=== PATIENT | female | born 1980 | race Caucasian/White ===

== ENCOUNTER 2018-02-22 08:00 | Inpatient (IN) | payer MEDICAID ==
--- NOTE | 2018-02-14 12:13 | MH ---
cc: Ryder Mcintosh MD DATE OF ADMISSION: 02/22/2018 REASON FOR ADMISSION: For a repeat section. CHIEF COMPLAINT: Desires repeat . HISTORY OF PRESENT ILLNESS: This patient is a 37-year-old G4, P3-0-0-3, who will be at at 39 weeks and 5 days by her 19-week ultrasound with estimated due date of 02/24/2018 at the time of her admission. She is here for a scheduled repeat . Addendum to HPI will be added at the time of her admission. Her has been complicated by HIV positive status, history of x3, advanced maternal age, chronic hypertension, tobacco use, rubella and varicella non-immune status. PAST MEDICAL HISTORY: 1. HIV positive, diagnosed in 2010 after her . Sees Dr. Thomas as her infectious disease doctor. 2. Chronic hypertension. 3. Tobacco use. MEDICATIONS: 1. Hydrochlorothiazide 25 mg daily. 2. Complera daily. 3. vitamin. 4. Aspirin 81 mg daily. ALLERGIES: NO KNOWN DRUG ALLERGIES. PAST SURGICAL HISTORY: x3 (1996, 1997, 2010). SOCIAL HISTORY: Smokes tobacco, denies alcohol or illicit drug use. Father of the baby is named Valdez and he is aware of her HIV status. CRIME SPECIALIST HISTORY: Unsure LMP of 05/11/2017. Other than an HIV, no history of sexually transmitted diseases. OB HISTORY: 11/1996: 40 weeks, primary , viable male weighing [address] [facility], was secondary to breech. 06/1998: 40 weeks, repeat , male weighing 6 pounds, [address] [facility] for nonreassuring heart tones. 09/2011: 40 weeks, repeat , male weighing 7 pounds, 9 ounces at [facility]. The patient states that she had no care. FAMILY HISTORY: Noncontributory. PHYSICAL EXAMINATION: VITAL SIGNS: Based on encounter from 01/30/2018, blood pressure 130/80, weight 200 pounds. Any changes will be added at the time of her presentation. GENERAL: Alert and oriented x 3. HEART: Regular rate and rhythm. No murmurs, rubs or gallops. LUNGS: Clear to auscultation bilaterally. No wheezes, crackles or rhonchi. ABDOMEN: Soft, gravid, nontender, nondistended. No rebound or guarding. GENITOURINARY: Exam deferred. EXTREMITIES: No clubbing, cyanosis or edema. heart tones will be documented at the time of her presentation as well as any contractions. LABORATORY DATA: labs 09/05/2017: Blood type O-positive, antibody negative. Baseline hemoglobin 12.7, platelets 293. Normal Pap. Varicella non-immune. Rubella equivocal. VDRL nonreactive. Urine culture not indicated. Hepatitis B surface antigen negative. HIV positive. Gonorrhea and chlamydia negative. Cystic fibrosis screen negative. TSH 2.06. Sickle cell screen negative. Urine drug screen negative. Hepatitis C negative. Repeat labs on 11/04/2017: Hemoglobin 12.1. Hepatitis B nonreactive. Drug screen negative. RPR nonreactive. 01/22/2018: One hour GTT of 107. 11/14/2007: Viral load less than 20. GBS not collected. ASSESSMENT AND PLAN: This patient is a 37-year-old G4, P3-0-0-3, who will be at 39 weeks and 5 days by a 19-week ultrasound with estimated due date of 02/24/2018, here for a scheduled repeat . 1. Intrauterine : will be placed on EFM and toco. - Estimated weight on 01/30/2018 was 2318 grams, 13.9%ile, abdominal circumference 2%. TIMOTEO 11. BPP 8/8. Placenta posterior. 2. History of section x3. Patient desires repeat. Discussed risks, benefits and expected outcomes of surgery and repeat associated with maternal and morbidity. Please see consents for further details. CBC and type and cross x2 for the patient upon presentation. Possibly desires sterilization. The patient signed her Medicaid tubal papers on 12/13/2017. We will readdress this with her at the time of her presentation to see if she desires to pursue this. 3. Human immunodeficiency virus positive. The patient has been managed by her infectious disease doctor, Dr. Thomas. She has been fairly resistant and noncompliant per my recommendations of viral load and CD4 testing; however, she has been on Complera and stable and compliant with this since her diagnosis. Most recent documented viral load on 11/04/2017 was less than 20. We will repeat with CD4 at the time of her presentation to labor and delivery. 4. Advanced maternal age. Noninvasive screening was negative, normal anatomy of a female fetus. 5. Chronic hypertension, well controlled on hydrochlorothiazide 25 mg daily. The patient refused to collect a 24-hour urine protein as a baseline. 6. Tobacco use. We will discuss its implications again on healing and course. 7. Rubella and varicella virus non-immune. Recommended her to discuss this with her infectious disease doctor . 8. Lagging abdominal circumference for weight on 01/30/2018. Abdominal circumference in the 2nd percentile but overall EFW of 13%. Had 8/8 BPP and normal uterine artery Dopplers. Recommend the patient have weekly testing which she has not been able to comply with. 9. the patient is aware that she cannot breastfeed. MD MING Watson/LAMAR , 01:27 PM , 02:16 PM WILLIE
[~2018-02-22] VITALS: Ht 170.2 cm; Wt 94.0 kg
[~2018-02-22 08:00] MED LIST: DARV PO; IBUP400T20 PO; Z.0.NO CURRENT MEDS
[2018-02-22] MEDS ORDERED: LACTATED RINGER'S 1000 ML INJ 1,000 ML IV ONE (08:33)
[2018-02-22] MEDS ORDERED: EMTRICITABINE/TENOFOVIR 200 MG/300 MG TAB PO SCH (09:00)
[2018-02-22] MEDS ORDERED: RILPIVIRINE 25 MG TAB PO SCH (09:00)
[2018-02-22] MEDS ORDERED: IBUP-232 PO (09:01)
[2018-02-22] MEDS ORDERED: PERC5TAB12 PO (09:02)
[2018-02-22] MEDS ORDERED: LACTATED RINGER'S 1000 ML INJ 1,000 ML IV SCH ×2 (09:03→14:33)
--- NOTE | 2018-02-22 09:05 | HHI.DCPOC ---
Discharge Care Plan Diagnosis: (1) HIV (human immunodeficiency virus infection) (2) Hypertension (3) delivery delivered (4) 39 weeks gestation of (5) Tobacco use disorder (6) Advanced maternal age (AMA) in Your Health Problems Are: delivery (and BTL) Report Symptoms to Your Doctor -Temperature above 100.5 degrees -Redness, of incision or excessive or foul smelling drainage -Unusual pain or calf pain -Increased vaginal bleeding -Painful or difficulty urinating -Feelings of extreme sadness or anxiety after 2 weeks Goals to Promote Your Health * To prevent worsening of your condition and complications * To maintain your health at the optimal level Directions to Meet Your Goals Take your medications as prescribed Follow your dietary instruction Follow activity as directed Ensure plenty of rest for recovery Drink fluids for hydration Keep your appointments as scheduled Take your immunizations and boosters as scheduled If your symptoms worsen call your PCP, if no PCP go to Urgent Care Center or Emergency Room Smoking is Dangerous to Your Health. Avoid second hand smoke Call the 24-hour crisis hotline for domestic abuse at Ryder Mcintosh MD February 22, 2018 09:05
--- NOTE | 2018-02-22 09:06 | PD.OB.DELI ---
Procedure Note Section Procedure Pre Op Diagnosis: (1) Hypertension (2) delivery delivered (3) HIV (human immunodeficiency virus infection) (4) 39 weeks gestation of (5) Advanced maternal age (AMA) in (6) Tobacco use disorder Post Op Diagnosis: Performed by Ryder Mcintosh Procedure: Repeat Low Transverse Sec (and BTL) Indication for delivery: Desired elective repeat Previous condition: Other (history of x3) Informed consent obtained: For anesthesia, For procedure Confirmed correct: Patient, Procedure, Site Anesthesia: Spinal Medication prior to procedure: As documented in eMAR, Analgesics, Antacids, Antibiotics, IV Monitoring during procedure: Blood pressure monitoring, Pulse oximetry Urinary catheter: Inserted using sterile technique, To dependent drainage, ml urine output (350) Sterile preparation: Duraprep Position: Supine with wedge to left side Operative Features Skin Incision: Pfannenstiel Uterine Incision: Low transverse w/knife / blunt ext Membranes Ruptured: Artificially Presentation: Occiput anterior, Vertex Delivery date: February 22, 2018 Delivery time: 10:37 Delivery of infant: Uneventful : Female, Single One Minute : 9 Five Minute : 9 Status of : Viable Placenta delivered: Intact Medications: Antibiotics (2g ancef), Oxytocin (after delivery of ) Estimated blood loss: 500 Procedure tolerated: Well Maternal Complications: Other (none) Maternal Condition: Stable Baby Complications: Other (none) Condition: Stable Procedure in detail IV fluids: 2200 cc lactated Ringer's and Pitocin Specimens: Bilateral mid isthmic segment of fallopian tube to pathology, routine Complications: none Findings: -Moderate scar tissue of the subcutaneous fat and fascia, no intra-abdominal adhesions, very thin lower uterine segment, normal ovaries bilaterally, normal fallopian tubes bilaterally. Full reported dictated with dictation number: [id number] Ryder Mcintosh MD February 22, 2018 09:06
--- NOTE | 2018-02-22 09:20 | HHI.PR ---
JAVA SOFTWARE ENGINEER Note Note Patient presents for her scheduled , updated that she does desire a tubal ligation, is aware of the risks, benefits and expected outcomes of this, these were re-explained to her today. She signed her Medicaid sterilization consents on 12/13/2017. She also has a mildly elevated diastolic blood pressure of 138/92, she has no signs or symptoms of preeclampsia, she did take her blood pressure medicine last night which she routinely takes in the morning. We will collect HELLP labs and urine P:C, however no P:C or 24-hour urine baseline for comparison. Ryder Mcintosh MD February 22, 2018 09:20
[2018-02-22 09:32] LABS: AUTOMATED NEUTROPHIL # 7.8 TH/MM3 (1.8-7.7); BASOPHIL # 0.1 TH/MM3 (0-0.2); EOSINOPHIL # 0.3 TH/MM3 (0-0.4); EOSINOPHIL % 2.3 % (0.0-4.0); HEMATOCRIT 36.8 % (35.0-46.0); HEMOGLOBIN 13.1 GM/DL (11.6-15.3); LYMPH % 23.2 % (9.0-44.0); LYMPHOCYTE # 2.8 TH/MM3 (1.0-4.8); MEAN CELL VOLUME 90.7 FL (80.0-100.0); MEAN CORPUSCULAR HEMOGLOBIN 32.2 PG (27.0-34.0); MEAN CORPUSCULAR HGB CONC 35.5 % (32.0-36.0); MEAN PLATELET VOLUME 9.6 FL (7.0-11.0); MONO % 8.4 % (0.0-8.0); NEUT % 65.1 % (16.0-70.0); PLATELET COUNT 249 TH/MM3 (150-450); RED BLOOD COUNT 4.06 MIL/MM3 (4.00-5.30); RED CELL DISTRIBUTION WIDTH 12.8 % (11.6-17.2); WHITE BLOOD COUNT 11.9 TH/MM3 (4.0-11.0)
[2018-02-22] MEDS ORDERED: ACETAMINOPHEN 1000 MG/100 ML 100 ML IV ONE ×2 (09:45→12:05)
[2018-02-22] MEDS ORDERED: SIMETHICONE 80 MG CHEWABLE TAB PO PRN (09:45)
[2018-02-22] MEDS ORDERED: oxyCODONE/ACETAMINOPHEN 5 MG/325 MG TAB PO PRN ×2 (09:45)
[2018-02-22] MEDS ORDERED: SODIUM CHLORIDE 0.9% FLUSH 10 ML FLUSH IV FLUSH PRN (09:45)
[2018-02-22] MEDS ORDERED: OXYTOCIN 30 UNITS-500ML PREMIX 500 ML IV ONE (09:45)
[2018-02-22] MEDS ORDERED: ceFAZolin 2 GM PREMIX 50 ML IV SCH (09:45)
[2018-02-22] MEDS ORDERED: DOCUSATE SODIUM 50 MG/SENNA 8.6 MG TAB PO PRN (09:45)
[2018-02-22 09:54] LABS: ALBUMIN 2.6 GM/DL (3.4-5.0); AST (GOT) 25 U/L (15-37); BICARBONATE 23.4 MEQ/L (21.0-32.0); BLOOD UREA NITROGEN 11 MG/DL (7-18); CHLORIDE 101 MEQ/L (98-107); CREATININE 0.63 MG/DL (0.50-1.00); GLOMERULAR FILTRATION RATE 105 ML/MIN (>89); GLUCOSE,RANDOM 72 MG/DL (74-106); SODIUM (NA) 133 MEQ/L (136-145)
[2018-02-22 09:58] LABS: ALKALINE PHOSPHATASE 231 U/L (45-117); ALT (GPT) 18 U/L (10-53); TOTAL BILIRUBIN ADULT 0.2 MG/DL (0.2-1.0); TOTAL PROTEIN 7.1 GM/DL (6.4-8.2)
[2018-02-22] MEDS ORDERED: KETOROLAC TROMETHAMINE 30 MG/ML (IVP) VIAL IV PUSH SCH (10:00)
[2018-02-22] MEDS ORDERED: MORPHINE SULFATE PF 5 MG/10 ML VIAL ONE (10:01)
[2018-02-22] MEDS ORDERED: CITRIC ACID-SODIUM CITRATE LIQ 30 ML UDC PO SCH (10:15)
[2018-02-22] MEDS ORDERED: ONDANSETRON HCL 4 MG/2 ML VIAL ONE (11:46)
[2018-02-22] MEDS ORDERED: OXYTOCIN 30 UNITS-500ML PREMIX 500 ML ONE (12:06)
--- NOTE | 2018-02-22 12:11 | MP ---
cc: Ryder Mcintosh MD DATE OF OPERATION: 02/22/2018 DATE OF OPERATION: 02/22/2018 PREOPERATIVE DIAGNOSES: 1. Intrauterine at 39 weeks and 5 days. 2. History of section x 3, desiring repeat. 3. Desires sterilization. 4. Human immunodeficiency virus positive. 5. Chronic hypertension. 6. Tobacco use. 7. Advanced maternal age. 8. Rubella and varicella status nonimmune. POSTOPERATIVE DIAGNOSES: 1. Intrauterine at 39 weeks and 5 days. 2. History of section x 3, desiring repeat. 3. Desires sterilization. 4. Human immunodeficiency virus positive. 5. Chronic hypertension. 6. Tobacco use. 7. Advanced maternal age. 8. Rubella and varicella status nonimmune. 9. Status post delivery and tubal ligation. PROCEDURE PERFORMED: Repeat low transverse and bilateral tubal ligation, modified [place]. SURGEON: Ryder Mcintosh MD HVAC/R SERVICE TECHNICIAN SURGEON: Fly Mcghee OR scrub staff. FINDINGS: 1. Viable female at 10:37, apgars 9 and 9. 2. Moderate subcutaneous scarring. No intra-abdominal adhesions. Normal-appearing fallopian tubes and ovaries bilaterally. Very thin lower uterine segment, almost a uterine window. 3. Intact placenta, 3-vessel cord shortly after ESTIMATED BLOOD LOSS: 500 mL. IV REPLACEMENT: 2200 mL Lactated Ringer's and Pitocin. URINE OUTPUT: 350 mL, clear via Kumar. ANESTHESIA: Spinal with Astramorph. ANTIBIOTICS: Ancef 2 grams preoperatively. SPECIMENS: Bilateral mid isthmic segments of fallopian tubes to pathology routine. Placenta to disposal. COUNTS: Correct x 2. TIMEOUT: Done and correct. COMPLICATIONS: None. DVT PROPHYLAXIS: Sequential compression devices throughout the case. DISPOSITION: Stable to PACU, then . INDICATION FOR PROCEDURE: This patient is a 37-year-old -0-0-3, now P4-0-0-4, who presented for a scheduled repeat . She was followed closely as an outpatient for her other comorbidities, she had an undetectable viral load in November of this year and had been compliant with her Complera and followed by infectious disease. She had testing that was all reassuring and the patient was counseled for repeat and bilateral tubal ligation. Please see H and P for further details and consents. DESCRIPTION OF PROCEDURE: The patient was taken to the operating room where spinal anesthesia was placed and found to be adequate. She was positioned in the supine position with a left lateral tilt with the arms out. The abdomen was prepped and draped in a sterile fashion. A Kumar was inserted with sterile technique. A Pfannenstiel incision was made overlying the previous scar and dissected sharply down to the fascia, which was extended bilaterally with Marks scissors and dissected off the rectus muscle superiorly and inferiorly with Marks scissors. The peritoneum was entered sharply with a scalpel and retracted laterally. The bladder was well away and a bladder flap was developed with Metzenbaum scissors. A very thin lower uterine segment was appreciated and just superior to that, the hysterotomy was made in a curvilinear fashion still within the lower uterine segment and extended in a cephalad-caudad fashion. My hand was inserted into the uterus and the head was elevated to the hysterotomy with fundal pressure, the head was delivered with ease and the amniotic sac was artificially ruptured. With gentle downward guidance and upward guidance for the anterior and posterior shoulders respectively, the was delivered followed by the torso and lower extremities with ease. Infant had spontaneous cry. Delayed cord clamping was allowed and then the was handed off to the staff. The placenta was delivered by bolusing Pitocin and uterine massage and cord traction intact. The uterus was exteriorized and cleared free of clot and debris. Uterus was closed with a single running locking layer of 0 Vicryl. There was a small 5mm tear in that thin lower uterine segment on the left side of the inferior aspect of the hysterotomy that was attempted to be closed with 0 and 3-0 Vicryl [id number]. However, due to its thinness and tension from the suture, several small fenestrations which leaked intrauterine blood were appreciated; however, that blood was minimal. Attention was turned to the fallopian tubes. The mid isthmic segment was elevated with Babcocks and doubly ligated with 0 plain gut. The elevated knuckle was removed with Metzenbaums and the cut edges were found to be hemostatic. The same was done on the contralateral side. The uterus was returned to the abdomen. The abdomen was irrigated as well as the hysterotomy and found to be hemostatic. The fascia was closed with single running unlocked 0 Vicryl from left to right and the subcutaneous tissue was irrigated and found to be hemostatic. The skin was closed with 3-0 Monocryl in a subcuticular fashion and a pressure dressing was applied and the patient tolerated the procedure well. MD MING Watson/PRADEEP , 11:24 AM , 12:10 PM WILLEI
[2018-02-22] MEDS ORDERED: KETOROLAC TROMETHAMINE 30 MG/ML (IVP) VIAL ONE (12:13)
[2018-02-22] MEDS ORDERED: PROMETHAZINE INJ 25 MG/ML VIAL IM ONE (12:15)
[2018-02-22] MEDS ORDERED: EPIDURAL-NALOXONE HCL 0.4 MG/ML AMP IV PUSH PRN (13:45)
[2018-02-22] MEDS ORDERED: EPIDURAL-NO SYSTEMIC NARCOTICS PRN (13:45)
[2018-02-22] MEDS ORDERED: EPIDURAL-DIPHENHYDRAMINE HCL 50 MG/ML VIAL IV PUSH PRN (13:45)
[2018-02-22] MEDS ORDERED: EPIDURAL-DIPHENHYDRAMINE HCL 50 MG CAP PO PRN (13:45)
[2018-02-22] MEDS ORDERED: EPIDURAL-DO NOT ADMINISTER ANTICOAGULANTS PRN (13:45)
[2018-02-22] MEDS ORDERED: OXYTOCIN 30 UNITS-500ML PREMIX 500 ML IV PRN (14:45)
[2018-02-22] MEDS: ONDANSETRON ODT 4 MG TAB PO PRN ×2 (17:50→21:13)
[2018-02-22] MEDS: PROMETHAZINE INJ 25 MG/ML VIAL IM PRN ×2 (17:50→21:17)
[2018-02-22 20:28] VITALS: BP 122/78; PULSE 60; RESP 18; TEMP 97.7
[2018-02-22] MEDS ORDERED: SODIUM CHLORIDE 0.9% FLUSH 10 ML FLUSH IV FLUSH SCH (21:00)
[2018-02-22 23:59] VITALS: BP 115/76; PULSE 71; RESP 17; TEMP 98.2
[2018-02-23 05:05] VITALS: BP 117/69; PULSE 60; RESP 17; TEMP 98.2
[2018-02-23 06:00] LABS: AUTOMATED NEUTROPHIL # 8.9 TH/MM3 (1.8-7.7); BASOPHIL # 0.1 TH/MM3 (0-0.2); BASOPHIL % 0.5 % (0.0-2.0); EOSINOPHIL # 0.1 TH/MM3 (0-0.4); HEMATOCRIT 36.3 % (35.0-46.0); HEMOGLOBIN 12.1 GM/DL (11.6-15.3); LYMPH % 19.6 % (9.0-44.0); LYMPHOCYTE # 2.5 TH/MM3 (1.0-4.8); MEAN CORPUSCULAR HEMOGLOBIN 31.3 PG (27.0-34.0); MEAN CORPUSCULAR HGB CONC 33.3 % (32.0-36.0); MEAN PLATELET VOLUME 9.7 FL (7.0-11.0); MONO % 8.4 % (0.0-8.0); MONOCYTE # 1.1 TH/MM3 (0-0.9); NEUT % 70.5 % (16.0-70.0); PLATELET COUNT 220 TH/MM3 (150-450); RED BLOOD COUNT 3.87 MIL/MM3 (4.00-5.30); RED CELL DISTRIBUTION WIDTH 12.8 % (11.6-17.2); WHITE BLOOD COUNT 12.7 TH/MM3 (4.0-11.0)
[2018-02-23] MEDS: ACETAMINOPHEN 325 MG TAB PO PRN ×3 (07:54→20:13)
[2018-02-23] MEDS: IBUPROFEN 600 MG TAB PO PRN ×3 (07:54→20:13)
--- NOTE | 2018-02-23 08:36 | HHI.OB ---
Subjective Post Operative Day: 1 Remarks Doing very well on POD 1 with ambulation. Not using narcotics due to past history. Desires to take complera (her own) and not the generic equivalent available here. Does not have significant pain and desires POD 2 discharge. bottle feeding. Objective Vitals/I&O Vital Signs Date Time Temp Pulse Resp B/P (MAP) Pulse Ox O2 Delivery O2 Flow Rate FiO2 02/23/18 05:05 98.2 60 17 117/69 (85) 02/22/18 23:59 98.2 71 17 115/76 (89) 02/22/18 20:28 97.7 60 18 122/78 (93) Intake & Output 02/23/18 02/23/18 07:00 19:00 Output Total 1725 ml Balance -1725 ml Output Urine Total 1725 ml Result Diagram: 02/23/18 0457 02/22/18 0900 Objective Remarks GENERAL: Well-nourished, well-developed patient. CARDIOVASCULAR: Regular rate and rhythm without murmurs, gallops, or rubs. RESPIRATORY: Breath sounds equal bilaterally. No accessory muscle use. ABDOMEN/GI: Abdomen soft, non-tender, bowel sounds present. Incision: Clean, dry and intact. Fundus: Firm, non-tender at umbilicus. GENITOURINARY: Light to moderate bleeding. EXTREMITIES: No cyanosis or edema, non-tender, without signs of DVT. Medications and IVs Current Medications Medications (Trade) Dose Ordered Sig/Frida Route Start Time Stop Time Status Last Admin Lactated Ringer's 1,000 ml @ 150 mls/hr Q6H40M IV 02/22/18 09:03 Cefazolin Sodium/ Dextrose 50 ml @ 100 mls/hr CODE AND TEST CLERK IV 02/22/18 09:45 02/26/18 09:44 (Bicitra Liq) 30 ml CODE AND TEST CLERK PO 02/22/18 10:15 02/26/18 10:14 (Hydrodiuril) 25 mg DAILY PO 02/23/18 09:00 (Truvada 200-300 Mg) 1 tab DAILY PO 02/22/18 09:00 (Edurant) 25 mg DAILY PO 02/22/18 09:00 Lactated Ringer's 1,000 ml @ 100 mls/hr Q10H IV 02/22/18 14:33 02/23/18 10:32 Oxytocin 500 ml @ 100 mls/hr UNSCH X1 PRN IV 02/22/18 14:45 02/23/18 14:44 (NS Flush) 2 ml BID IV FLUSH 02/22/18 21:00 (NS Flush) 2 ml UNSCH PRN IV FLUSH 02/22/18 09:45 (Mylicon Chew) 80 mg QID PRN PO 02/22/18 09:45 (Tylenol) 650 mg Q6H PRN PO 02/22/18 09:45 02/23/18 07:54 (Motrin) 600 mg Q6H PRN PO 02/22/18 09:45 02/23/18 07:54 (Percocet 5-325 Mg) 1 tab Q4H PRN PO 02/22/18 09:45 (Percocet 5-325 Mg) 2 tab Q4H PRN PO 02/22/18 09:45 (Uzma-Colace) 2 tab Q12H PRN PO 02/22/18 09:45 (M-M-R Ii Inj) 0.5 ml ONCE ONCE SQ 02/23/18 16:00 02/23/18 16:01 (Boostrix Inj) 0.5 ml ONCE ONCE IM 02/23/18 16:00 02/23/18 16:01 (Zofran Odt) 4 mg Q4H PRN PO 02/22/18 10:00 02/22/18 21:13 ([facility] [place] [facility] Information) NO SYSTEMIC NARCOTICS TO BE GIVEN FO... UNSCH PRN .XX 02/22/18 13:45 02/23/18 13:44 (Narcan Inj) 0.4 mg UNSCH PRN IV PUSH 02/22/18 13:45 02/23/18 13:44 (Benadryl Inj) 25 mg Q6H PRN IV PUSH 02/22/18 13:45 02/23/18 13:44 (Benadryl) 50 mg Q6H PRN PO 02/22/18 13:45 02/23/18 13:44 02/22/18 21:12 ([facility] Information) ALL NURSING DEPARTMENTS UNSCH PRN .XX 02/22/18 13:45 02/23/18 13:44 (Phenergan Inj) 25 mg Q4H PRN IM 5/24/18 17:30 02/22/18 21:17 Assessment/Plan Assessment and Plan POD 1 s/p fourth section and PPTL on retrovirals with no detectable viral load reported (labs here pending) did not receive peripartum AZT due to non detectable normotensive and can continue HCTZ since not nursing will take own complera andJOLENE plan for discharge in the morning Yashira Ross MD February 23, 2018 08:36
[2018-02-23] MEDS ORDERED: HYDROCHLOROTHIAZIDE 25 MG TAB PO SCH (09:00)
[2018-02-23] MEDS ORDERED: MEASLES, MUMPS, RUBELLA VACCINE 0.5 ML VIAL SQ ONE (16:00)
[2018-02-23] MEDS ORDERED: DIPHTH/TETANUS/ACEL PERTUSSIS (BOOSTER) 0.5 ML VIAL/PFS IM ONE (16:00)
[2018-02-24] MEDS: IBUPROFEN 600 MG TAB PO PRN ×2 (05:06→12:26)
[2018-02-24] MEDS: ACETAMINOPHEN 325 MG TAB PO PRN ×2 (05:06→12:26)
--- NOTE | 2018-02-24 09:25 | HHI.OB ---
Subjective Post Operative Day: 2 Remarks Mom ready for discharged and initially not buying into having infant stay for observation due to size. Dr. Zhang attempting to explain and I have supported her. Mom has another 24 hours she can stay but wants discharge. Can stay with baby in peds. If changes mind will cancel discharge' pain controlled with motrin and some tramadol. no DYE, blurred vision, N, V, RUQT denies PPD reviewed blood clots, depression and return to office next week continue retrovirals baby has AZT Objective Result Diagram: 02/23/18 0457 02/22/18 0900 Objective Remarks GENERAL: Well-nourished, well-developed patient. CARDIOVASCULAR: Regular rate and rhythm without murmurs, gallops, or rubs. RESPIRATORY: Breath sounds equal bilaterally. No accessory muscle use. ABDOMEN/GI: Abdomen soft, non-tender, bowel sounds present. Incision: Clean, dry and intact. Fundus: Firm, non-tender at umbilicus. GENITOURINARY: Light to moderate bleeding. EXTREMITIES: No cyanosis or edema, non-tender, without signs of DVT. Medications and IVs Current Medications Medications (Trade) Dose Ordered Sig/Frida Route Start Time Stop Time Status Last Admin Lactated Ringer's 1,000 ml @ 150 mls/hr Q6H40M IV 02/22/18 09:03 Cefazolin Sodium/ Dextrose 50 ml @ 100 mls/hr DIRECTOR CALL IV 02/22/18 09:45 02/26/18 09:44 (Bicitra Liq) 30 ml DIRECTOR CALL PO 02/22/18 10:15 02/26/18 10:14 (NS Flush) 2 ml BID IV FLUSH 02/22/18 21:00 (NS Flush) 2 ml UNSCH PRN IV FLUSH 02/22/18 09:45 (Mylicon Chew) 80 mg QID PRN PO 02/22/18 09:45 02/23/18 21:35 (Tylenol) 650 mg Q6H PRN PO 02/22/18 09:45 02/24/18 05:06 (Motrin) 600 mg Q6H PRN PO 02/22/18 09:45 02/24/18 05:06 (Percocet 5-325 Mg) 1 tab Q4H PRN PO 02/22/18 09:45 (Percocet 5-325 Mg) 2 tab Q4H PRN PO 02/22/18 09:45 (Uzma-Colace) 2 tab Q12H PRN PO 02/22/18 09:45 (Zofran Odt) 4 mg Q4H PRN PO 02/22/18 10:00 02/22/18 21:13 (Phenergan Inj) 25 mg Q4H PRN IM 02/22/18 17:30 02/22/18 21:17 Assessment/Plan Assessment and Plan POD 1 s/p fourth section and PPTL on retrovirals with no detectable viral load reported (labs here pending) did not receive peripartum AZT due to non detectable normotensive and can continue HCTZ since not nursing [facility] plan for discharge in the morning POD 2 mom ready for discharge baby may need to stay RTO 1 week reviewed as above Yashira Ross MD February 24, 2018 09:25
[2018-02-24] MEDS ORDERED: IBUP-232 PO (09:27)
[2018-02-24] MEDS ORDERED: TRAM50TA PO (09:27)
== END 2018-02-24 13:09 | disposition home or self-care (01) | DRG 765 ==
LOC: H2EB 08:13 → H1EA 12:50
PROVIDERS: ADMIT Obstetrics & Gynecology; ATTEND Obstetrics & Gynecology
PROC: 10D00Z1 Extraction of Products of Conception, Low, Open Approach (ICD-10-PCS; principal; 2018-02-22)
PROC: 0UB70ZZ Excision of Bilateral Fallopian Tubes, Open Approach (ICD-10-PCS; 2018-02-22)
DX: O34.219 Maternal care for unspecified type scar from previous cesarean delivery (principal); O10.92 Unspecified pre-existing hypertension complicating childbirth; O98.72 Human immunodeficiency virus [HIV] disease complicating childbirth; Z21 Asymptomatic human immunodeficiency virus [HIV] infection status; O99.334 Smoking (tobacco) complicating childbirth; F17.210 Nicotine dependence, cigarettes, uncomplicated; O36.5930 Maternal care for other known or suspected poor fetal growth, third trimester, not applicable or unspecified; Z37.0 Single live birth; Z3A.39 39 weeks gestation of pregnancy; Z30.2 Encounter for sterilization
CPT/HCPCS: 80053; 80307; 82570; 84156; 85025; 86355; 86357; 86359; 86360; 86850; 86900; 86901; 86920; 87536; 88302; J0131; J1885; J2274; J2405; J2550; J2590; J7120; Q0163